=== PATIENT | female | born 1975 | race Caucasian/White ===

== ENCOUNTER 2018-09-21 05:51 | Observation (INO) ==
[~2018-09-21 05:51] MED LIST: LACTATED RINGERS 1,000 ML IV SCH; ceFAZolin 1,000 MG VIAL ONE
[2018-09-21] MEDS ORDERED: ceFAZolin 1,000 MG in SYRINGE 1 EACH IV ONE (06:00)
[2018-09-21] MEDS ORDERED: ROPIVACAINE 0.5% 30 ML VIAL ONE ×2 (06:45→06:49)
[2018-09-21] MEDS ORDERED: TISSUE ADHESIVE 1 EACH APPLICATOR TOP ONE (06:58)
[2018-09-21] MEDS ORDERED: LIDOCAINE 1%/EPI INJ 20 ML VIAL ONE (06:58)
[2018-09-21] MEDS ORDERED: BUPIVACAINE 0.5% 50 ML VIAL ONE (06:58)
[2018-09-21] MEDS ORDERED: PROPOFOL 200 MG/20 ML VIAL IV ONE (09:29)
[2018-09-21] MEDS ORDERED: MIDAZOLAM 2 MG/2 ML VIAL ONE (09:29)
[2018-09-21] MEDS ORDERED: SEVOFLURANE 1 UNIT/15 MINUTE INH ONE (09:29)
[2018-09-21] MEDS ORDERED: ACETAMINOPHEN 1,000 MG/100 ML VIAL IV ONE (09:30)
[2018-09-21] MEDS ORDERED: ONDANSETRON 4 MG/2 ML VIAL ONE (09:30)
[2018-09-21] MEDS ORDERED: ROCURONIUM 100 MG/10 ML VIAL IV ONE (09:30)
[2018-09-21] MEDS ORDERED: KETOROLAC 30 MG/1 ML VIAL ONE (09:30)
[2018-09-21] MEDS ORDERED: ONDANSETRON 4 MG/2 ML VIAL IV PRN ×2 (09:38→18:48)
[2018-09-21] MEDS: HYDROmorphone 2 MG/1 ML VIAL IV PRN ×3 (09:40→10:00)
[2018-09-21] MEDS ORDERED: PROMETHAZINE INJ 12.5 MG in SODIUM CHLORIDE 0.9% 50 ML IV STA (12:54)
[2018-09-21] MEDS ORDERED: LACTATED RINGERS 1,000 ML IV SCH (12:55)
[2018-09-21] MEDS ORDERED: HYDROmorphone 2 MG/1 ML VIAL IV STA (12:55)
[2018-09-21] MEDS ORDERED: PROMETHAZINE 25 MG/1 ML VIAL ONE (12:59)
[2018-09-21] MEDS ORDERED: PROMETHAZINE 25 MG/1 ML VIAL IM PRN (18:48)
[2018-09-21] MEDS: LACTATED RINGERS 1,000 ML IV SCH (18:48)
[2018-09-21] MEDS ORDERED: HYDROmorphone 2 MG/1 ML VIAL IV PRN (18:48)
[2018-09-21 19:37] LABS: Basophils % 0.2 % (0.0-0.8); Hematocrit 40.2 VOL% (35.7-47.0); Hemoglobin 12.9 GM/DL (12.0-16.0); Immature Granulocytes % 0.6 %; Immature Granulocytes Absolute 0.07 #; Lymphocytes % 7.9 % (21.3-54.2); Mean Corpuscular HGB Conc 32.1 GM/DL (32-36); Mean Corpuscular Volume 95.9 FL (87-102); Mean Platelet Volume 10.7 FL (9.6-12.0); Monocytes % 2.1 % (1.7-12.7); Neutrophils % 89.2 % (38.7-73.9); Platelet Count 266 T/CUMM (130-400); Red Blood Count 4.19 MC/CUMM (3.8-5.5); White Blood Count 12.1 T/CUMM (4-12)
[2018-09-21 19:52] LABS: Calcium 9.1 MG/DL (8.5-10.1); Osmolality,Calculated 277.8 MOS/KG (273-304)
[2018-09-22] MEDS: LACTATED RINGERS 1,000 ML IV SCH ×2 (00:43→09:18)
[2018-09-22 05:32] LABS: Basophils % 0.2 % (0.0-0.8); Eosinophils % 0.3 % (0.00-10.9); Hematocrit 36.3 VOL% (35.7-47.0); Hemoglobin 11.4 GM/DL (12.0-16.0); Immature Granulocytes % 0.5 %; Immature Granulocytes Absolute 0.06 #; Lymphocytes # 2.1 10*3/uL (1.4-4.0); Lymphocytes % 18.3 % (21.3-54.2); Mean Corpuscular HGB Conc 31.4 GM/DL (32-36); Mean Corpuscular Volume 97.1 FL (87-102); Mean Platelet Volume 10.9 FL (9.6-12.0); Monocytes % 6.3 % (1.7-12.7); Neutrophils % 74.4 % (38.7-73.9); Platelet Count 251 T/CUMM (130-400); Red Blood Count 3.74 MC/CUMM (3.8-5.5); White Blood Count 11.7 T/CUMM (4-12)
[2018-09-22 05:52] LABS: Calcium 8.6 MG/DL (8.5-10.1); Osmolality,Calculated 281.3 MOS/KG (273-304)
[2018-09-22] MEDS: ENOXAPARIN 40 MG/0.4 ML SYRINGE SUBCUT SCH (09:07)
[2018-09-22] MEDS ORDERED: KETOROLAC 30 MG/1 ML VIAL IV ONE (09:37)
[2018-09-22] MEDS: GABAPENTIN 100 MG CAPSULE PO SCH ×2 (10:08→20:28)
[2018-09-22] MEDS: KETOROLAC 15 MG/1 ML VIAL IV SCH ×3 (10:09→22:03)
[2018-09-22] MEDS: POLYETHYLENE GLYCOL POWDER 17 GM PACK PO SCH (12:01)
[2018-09-22] MEDS: CYCLOBENZAPRINE 10 MG TABLET PO SCH ×2 (16:08→20:28)
[2018-09-23] MEDS: KETOROLAC 15 MG/1 ML VIAL IV SCH ×2 (03:38→11:23)
[2018-09-23] MEDS: GABAPENTIN 100 MG CAPSULE PO SCH (08:53)
[2018-09-23] MEDS: ENOXAPARIN 40 MG/0.4 ML SYRINGE SUBCUT SCH (08:53)
[2018-09-23] MEDS: CYCLOBENZAPRINE 10 MG TABLET PO SCH (08:53)
[2018-09-23] MEDS: POLYETHYLENE GLYCOL POWDER 17 GM PACK PO SCH (08:53)
[2018-09-23 11:53] VITALS: BP 119/69
== END 2018-09-23 13:30 | disposition home or self-care (01) ==
LOC: N.OR 05:51 → N.3E 05:51 → N.SDSINP 05:51 → N.3E 14:21
PROVIDERS: ADMIT Surgery; ATTEND Surgery